=== PATIENT | male | born 1990 | race Hispanic/Latino ===

== ENCOUNTER 2016-08-12 17:36 | Emergency (ER) | payer OTHER ==
[~2016-08-12] VITALS: Ht 172.7 cm; Wt 113.6 kg
[~2016-08-12 17:36] MED LIST: CEPH-512 PO; HYDR-4003 PO; IBUP800T28 PO
[2016-08-12 17:43] VITALS: BP 133/81; PULSE 73; RESP 16; O2SAT 97
--- NOTE | 2016-08-12 18:29 | ED.REPORT ---
HPI-Back Pain Under 40 Date of Service Aug 12, 2016 ED Provider: Dr. Sukhdev Angela Otherwise healthy 26 year old male presents to the ED with lumbar pain after flipping 80 pound boards at work today. Pt denies any other known injury. Pt denies any radiation of pain, lower extremity numbness/weakness or changes in bowel/bladder. Nursing Notes Stated Complaint: LOW BACK PAIN Chief Complaint: Back Pain or Injury Nursing Notes Reviewed: Yes Allergies: Coded Allergies: No Known Allergies (Unverified , 12/06/15) Scheduled Cephalexin (Keflex) 500 Mg Capsule 500 MG PO QID Scheduled PRN Hydrocodone-Acetaminophen 5-325 mg (Hydrocodone-Acetaminophen 5-325 mg) 1 Each Tablet 1-2 TABLET PO QID PRN PRN For Pain Ibuprofen (Ibuprofen) 800 Mg Tablet 800 MG PO TID PRN PRN For Pain General Time Seen by MD: 18:29 Chief Complaint Lumbar pain Hx Obtained From: Patient Arrived By: Walk-in Sudden in Onset?: No Onset Occurred: 1 day ago Symptom Duration: Since onset Caused by: Bending, Lifting Location: : Perispinal lumbar Quality: Painful Radiation: : Does not radiate Severity: Current: Moderate Associated with: Denies: Inability to walk, Incontinence bladder, Incontinence bowel, Numbness both low ext, Weakness both lower ext Pertinent Negative: Relieved by nothing Past Medical History Past Medical History None. Past Surgical History None. Smoking History Unknown if Ever Smoker Social History Other Social History: Good social support Ambulatory Status Independent Review of Systems Basic Review of Systems Eyes: Vision NL, No discharge ENT: Hearing NL, No pain, No nasal congestion, No pharyngeal pain Hematologic: No bleeding, No bruising Skin: No bruising, No rash, No itch Allergy / Immune: No allergy Psychiatric: Normal thought content Constitutional: Denies: Fever Respiratory: Denies: Shortness of breath Cardiovascular: Denies: Chest pain GI: Denies: Abdominal pain, Vomiting Musculoskeletal: Reports: Back pain, Lumbar pain, Denies: Extremity pain, Neck pain Neurologic: Denies: Bladder dysfunction, Bowel dysfunction, Change LOC, Headache, Numbness, Problem walking, Weakness Complete sys rev & neg: except as marked. Physical Exam Initial Vital Signs Vital Signs (First) Date Time Temp Pulse Resp B/P Pulse Ox O2 Delivery O2 Flow Rate FiO2 08/12/16 17:43 37.3 73 16 133/81 97 Room Air Initial VS: Reviewed Head / Eyes: Atraumatic, Normocephalic, PERRL ENT: Conjunctiva normal, No scleral icterus Neck: Full range of motion Respiratory: Breath sounds normal, Clear to auscultation, No respiratory distress Cardiovascular: Regular rate & rhythm, Heart sounds normal, Intact distal pulses Extremities: Vascular intact, Neuro intact, No swelling, No tenderness Skin: Warm, Dry, No cyanosis Psychiatric: Mood/affect normal, Behavior normal, Normal thought content General/Constitutional: Awake, Alert Back: Atraumatic Flank / Spine / Paraspinal: Positive: Lumbar paraspinal tend... (On Left) No Cauda Equina syndrome Neurologic: Oriented X3, Speech NL, No motor deficits, No sensory deficits, Gait NL No saddle anesthesia nl leg strength Interpretation & Diagnostics Pulse Oximetry Interpretation Pulse Oximetry: Pulse Ox normal (97), On room air Re-Eval/Medical Decision Re-Evaluation/Progress : Time of Eval: 19:00 Re-Evaluation/Progress Note: Discussed plan for discharge and follow up. All questions addressed. Counseled Regarding: Diagnosis, Need for follow-up, When/why to return to ED Discharge & Departure Impression: Primary Impression: Lumbosacral strain Encounter type: initial encounter Qualified Code: S39.012A - Strain of muscle, fascia and tendon of lower back, initial encounter Additional Impression: Low back pain Chronicity: acute Back pain laterality: right Sciatica presence: without sciatica Qualified Code: M54.5 - Low back pain Disposition: Home All VS Reviewed: Yes Condition: Improved Patient Instructions: Low Back Strain (ED) Additional Instructions: I suspect that she you have pulled muscles in your low back. You may have stretched the connective tissue or possibly irritated a nerve root. Rest your back for the next 48 hours and then begin active motion. Take 1 Vicoprofen every 6 hours as needed for severe pain. Do not take any other anti- inflammatories or sedating medications with taking this. Do not drive or drink alcohol while taking the Vicoprofen. Do not work while under the influence of Vicoprofen. You may take [id number] acetaminophen as directed for moderate pain. Read the aftercare instructions given. Return if you develop any numbness, weakness or loss of bowel or bladder control. Return if you develop any urine retention or any worsening or new symptoms. Set up a follow- up with your primary care physician or referral clinic for next week. Referrals: [facility] (PCP) [facility] Portions of this note were transcribed by Janet Hernandez. I, (Dr. Angela) personally performed the history, physical exam and medical decision-making; I reviewed and confirmed the accuracy of the information in the transcribed note. Signed by: Janet Hernandez. Silviano, 08/12/2016, 1913 copies to: [facility] Todd P DO Aug 12, 2016 18:29 Janet Hernandez Aug 12, 2016 18:49
[2016-08-12] MEDS ORDERED: Ketorolac 30 mg/mL 2 mL Inj IM ONE ×2 (18:50→19:00)
[2016-08-12 19:10] VITALS: BP 142/78; PULSE 76; RESP 17; O2SAT 98
== END 2016-08-12 19:11 | disposition home or self-care (01) ==
LOC: SED 17:36
DX: S39.012A Strain of muscle, fascia and tendon of lower back, initial encounter (principal); X50.0XXA Overexertion from strenuous movement or load, initial encounter; Y92.59 Other trade areas as the place of occurrence of the external cause; Y93.89 Activity, other specified; Y99.0 Civilian activity done for income or pay; M54.5 Low back pain
CPT/HCPCS: 96372; 99283; J1885